=== PATIENT | female | born 1990 | race Hispanic/Latino ===

== ENCOUNTER 2018-03-25 09:33 | Inpatient (IN) | payer MEDICAID, OTHER ==
[2018-03-25 11:07] VITALS: BMI 35.3
[2018-03-25] MEDS ORDERED: Promethazine HCl 25 MG/ML VIAL IM PRN ×4 (11:23→17:08)
[2018-03-25] MEDS ORDERED: Ondansetron PF 4 MG/2 ML Vial IVP PRN ×3 (11:23→15:33)
[2018-03-25] MEDS ORDERED: CEFAZOLIN 2 GM/50 ML BAG IVPB SCH (11:30)
[2018-03-25] MEDS ORDERED: Bicitra 30 ML UDCUP PO SCH (11:30)
[2018-03-25] MEDS ORDERED: Fentanyl 100 MCG/2 ML VIAL ONE (11:32)
[2018-03-25] MEDS ORDERED: Oxytocin 10 UNITS/ML VIAL ONE ×3 (11:32→12:45)
[2018-03-25] MEDS ORDERED: Morphine PF 1 MG/ML SYR ONE (11:32)
[2018-03-25] MEDS ORDERED: Famotidine/PF 20 mg/2ml Vial ONE (11:33)
[2018-03-25] MEDS ORDERED: Lidocaine 2% 10 ML INJ ONE (11:48)
[2018-03-25] MEDS ORDERED: Bupivacaine 0.75% W/DEXTROSE 8.25% 2 ML AMP ONE (11:48)
[2018-03-25 11:57] LABS: Hemoglobin 12.3 g/dL (12.0-16.0); Mean Corpuscular HGB CONC 31.9 g/dL (32.0-36.0); Mean Corpuscular Hemoglobin 28.7 pg (27.0-31.0); Mean Corpuscular Volume 89.8 fL (78.0-98.0); Platelet Count 132 thou/uL (130-400); RBC Distribution Width 13.7 % (11.5-14.5); Red Blood Cell (RBC) Count 4.28 mill/uL (4.20-5.40); White Blood Cell (WBC) Count 9.4 thou/uL (4.8-10.8)
[2018-03-25 12:34] LABS: Syphilis Antibody Nonreactive (Nonreactive); Syphilis Antibody Index 0.03 S/CO (<1.00 Non-Reactive)
[2018-03-25 12:35] LABS: HBSAg Index 0.22 S/CO (0-0.99); Hep B Surf Ag Non-Reactive S/CO (NonReactive)
[2018-03-25] MEDS ORDERED: HYDROmorphone 2 MG/ML VIAL SLOW IVP PRN (12:43)
[2018-03-25] MEDS ORDERED: Eucerin (Mineral Oil/Petrolatum,White) 30 gm Jar TOP PRN (12:43)
[2018-03-25] MEDS ORDERED: Naloxone HCl 0.4 mg/ml Vial IV PRN (12:43)
[2018-03-25] MEDS ORDERED: L&D-Morphine 4 MG/ML VIAL SLOW IVP PRN (12:43)
[2018-03-25] MEDS ORDERED: Naloxone HCl 0.4 mg/ml Vial IVP PRN ×3 (12:43→17:08)
[2018-03-25] MEDS ORDERED: Meperidine HCl/PF 25 MG/ML VIAL SLOW IVP PRN (12:43)
[2018-03-25] MEDS ORDERED: Ketorolac Tromethamine 30 MG/ML VIAL IVP PRN ×2 (12:43→21:00)
[2018-03-25] MEDS ORDERED: Ondansetron HCl/PF 4 MG/2 ML Vial IVP PRN (12:43)
[2018-03-25] MEDS ORDERED: Promethazine HCl 25 MG SUPP PR PRN (12:43)
[2018-03-25] MEDS ORDERED: diphenhydrAMINE 50 MG/ML VIAL IVP PRN (12:43)
[2018-03-25] MEDS ORDERED: Communication Order-Pharmacy FS SCH (12:45)
[2018-03-25] MEDS ORDERED: Ketorolac Tromethamine 30 MG/ML VIAL IVP SCH (12:45)
--- NOTE | 2018-03-25 14:59 | PDOC.LDHP ---
Labor and Delivery H&P Chief complaint: scheduled section Current gestational age (weeks): 39 Due date: 03/30/18 Grav: 2 Para: 1 Current complications: none Abnormal US findings: No Current medications: pre-drea vitamins Previous surgical history: low tranverse CS Allergies/Adverse Reactions: Allergies Allergy/AdvReac Type Severity Reaction Status Date / Time No Known Allergies Allergy Verified 03/25/18 10:51 - Physical Exam Vital signs reviewed and normal: yes General: NAD, resting Heart: RRR Lungs: nonlabored breathing Abdomen: NTTP Extremeties: no edema FHT: category 1 - Assessment L&D Assessment: scheduled repeat section - Plan Plan: to OR for section
[2018-03-25] MEDS ORDERED: Lanolin Ointment 7 GM TUBE TOP PRN (15:33)
[2018-03-25] MEDS ORDERED: Adacel (T-DAP) 0.5 ML VIAL IM ONE (15:33)
[2018-03-25] MEDS ORDERED: Bisacodyl 10 MG SUPP PR PRN (15:33)
[2018-03-25] MEDS ORDERED: Zolpidem Tartrate 5 MG TAB PO PRN (15:33)
[2018-03-25] MEDS ORDERED: Measles/Mumps/Rubella 10 MCG/0.5 ML VIAL SC ONE (15:33)
[2018-03-25] MEDS ORDERED: diphenhydrAMINE 25 MG CAP PO PRN (15:33)
[2018-03-25] MEDS ORDERED: Varicella virus, LIVE 0.5 ML VIAL SC ONE (15:33)
[2018-03-25] MEDS ORDERED: NS / Oxytocin 40 units/1000ml 1,000 ML ONE (15:58)
[2018-03-25] MEDS ORDERED: NS / Oxytocin 40 units/1000ml 0 ML ONE (15:58)
[2018-03-25] MEDS ORDERED: Lactated Ringer's 2,000 ML IV SCH (16:00)
[2018-03-25] MEDS: NS / Oxytocin 40 units/1000ml 1,000 ML IV SCH ×2 (16:00→16:15)
[2018-03-25] MEDS ORDERED: PHENYLEPHRINE-NS 100 MCG/ML 10 ML SYRINGE ONE (17:51)
[2018-03-25] MEDS ORDERED: Ketorolac Tromethamine 30 MG/ML VIAL ONE (17:51)
[2018-03-25] MEDS ORDERED: Metoclopramide HCl 10 MG/2 ML VIAL ONE (17:51)
[2018-03-25] MEDS ORDERED: ePHEDrine/0.9% NaCl/PF SYRINGE 50 mg/10 ml ONE (17:51)
[2018-03-25] MEDS ORDERED: Dexamethasone 20 MG/5 ML VIAL ONE (17:51)
[2018-03-25] MEDS ORDERED: Ondansetron PF 4 MG/2 ML Vial ONE (17:51)
[2018-03-25] MEDS ORDERED: Acetaminophen 1,000 MG in Premix Bag 1 BAG IVPB PRN (19:00)
[2018-03-25] MEDS: Ketorolac Tromethamine 30 MG/ML VIAL IVP PRN (19:29)
[2018-03-26] MEDS: Ibuprofen 800 MG TAB PO SCH ×5 (00:34→20:45)
[2018-03-26] MEDS: Docusate Calcium (SURFAK) 240 MG CAP PO SCH ×3 (00:34→20:45)
[2018-03-26] MEDS: Ketorolac Tromethamine 30 MG/ML VIAL IVP PRN (01:33)
[2018-03-26 05:43] LABS: Hemoglobin 10.2 g/dL (12.0-16.0); Mean Corpuscular HGB CONC 31.3 g/dL (32.0-36.0); Mean Corpuscular Hemoglobin 28.5 pg (27.0-31.0); Mean Corpuscular Volume 90.8 fL (78.0-98.0); Mean Platelet Volume 9.4 fL (7.4-10.4); Platelet Count 122 thou/uL (130-400); RBC Distribution Width 13.8 % (11.5-14.5); Red Blood Cell (RBC) Count 3.58 mill/uL (4.20-5.40); White Blood Cell (WBC) Count 14.9 thou/uL (4.8-10.8)
[2018-03-26] MEDS: HYDROcodone/Acetaminophen 5/325 mg Tablet PO PRN ×4 (07:52→20:48)
[2018-03-26] MEDS: Simethicone Chewable 80 MG TAB PO PRN ×2 (07:52→17:15)
--- NOTE | 2018-03-26 13:55 | OP ---
DATE OF PROCEDURE: 03/25/2018 PREOPERATIVE DIAGNOSES: Intrauterine at 39 weeks and 2 days with a previous secti on and declined trial of labor after section. POSTOPERATIVE DIAGNOSES: Intrauterine at 39 weeks and 2 days with a previous sect ion and declined trial of labor after section. PROCEDURE: Repeat low-transverse section. FINDINGS: Viable female weighing 4050 grams or 8 pounds 15 ounces, Apgars 8 and 9. QUANTITATIVE BLOOD LOSS: 655 mL. COMPLICATIONS: None. SURGEON: Dr. Sky Cruz. ANESTHESIA: Dr. King. DETAILS OF THE PROCEDURE: The patient was consented and taken back to the operating room where spina l anesthesia was found to be adequate. She was then prepped and draped in the normal sterile fashion . A time out was performed by the entire operative team. The incision was then marked with a markin g pen tested using sharp pickups. An incision was then made with a scalpel. The incision was christy d through the adipose tissue down to the underlying rectus fascia using both sharp dissection as well as cautery. Once the fascia was identified, it was incised in the midline and then the fascial inci raven was carried through in both lateral directions using sharp as well as cautery dissection techn[employer]iPay ues. Next, the superior aspect of the rectus fascia was grasped with 2 Caroline clamps which was tente d up and the rectus muscles were dissected off using blunt dissection as well as cautery dissection. Similarly, the inferior aspect of the fascial incision was grasped with 2 Caroline clamps, tented up a nd the rectus muscles were dissected off bluntly as well as sharply. Next, the rectus muscles were s eparated in the midline and the peritoneum identified. The peritoneum was then carefully grasped wit h two hemostats and entered sharply. The peritoneal incision was extended superiorly and inferiorly and bladder blade was placed in the lower abdomen. At this point, the uterus was identified and the bladder flap was then developed using pickups with teeth as well as Metzenbaum scissors in both later al directions. The bladder flap was then dissected downwards using the tire recapping machine operator's finger as well as Metzenbaum scissors. The bladder blade was replaced. The lower uterine segment was then identified and entered sharply using a clean scalpel. The uterine incision was then dissected downwards until t hin layer of muscle remained and this was entered bluntly using a hemostat to avoid any injury to the baby. The uterine incision was then stretched using two fingers in both lateral directions. An amniotomy was performed artificially using a hemostat and the baby was delivered using fundal pres sure in a gentle fashion. Once out, the baby's mouth and nose were bulb suctioned, cord clamped and cut, and the baby was handed to waiting attendants. Next, the uterus was exteriorized, cleared of al l clots and debris and the uterine incision was repaired with #1 Monocryl in a running locking fashio n. A second suture of the same type was used to obtain complete hemostasis at the uterine incision. The bladder flap was reapproximated using 3-0 Monocryl. Next, patient's left and right adnexa were inspected and appeared to be within normal limits. The posterior cul-de-sac was blotted dry and hemo stasis assured. One more look at the uterine incision demonstrated hemostasis. Next, the uterus was replaced back within the abdomen. The peritoneum was reapproximated using 2-0 Monocryl without diff iculty. The rectus muscles were then allowed to come back together and 0 chromic was used to aid in reapproximation of the muscle as necessary. The rectus fascia was then reapproximated in a running f ashion using 0 Vicryl suture. The adipose tissue was then examined and appeared to be well approxima dorys without any obvious separations. Finally, the skin was reapproximated with 3-0 Monocryl on a Mark th needle without difficulty and Dermabond adhesive was applied to the skin. Once the glue was dry, the drapes were removed and the patient was transferred to an ambulatory bed where she was taken to [facility] awake and in stable condition. Sponge, lap, and needle counts were correct x3.
[2018-03-27] MEDS: Ibuprofen 800 MG TAB PO SCH ×2 (05:58→14:44)
[2018-03-27] MEDS: HYDROcodone/Acetaminophen 5/325 mg Tablet PO PRN ×3 (08:52→18:08)
[2018-03-27] MEDS: Docusate Calcium (SURFAK) 240 MG CAP PO SCH (08:52)
[2018-03-27 12:09] VITALS: BP 118/63; TEMP 97.5
== END 2018-03-27 19:45 | disposition home or self-care (01) | DRG 788 ==
LOC: L&D 09:33 → 3SW 16:20
PROVIDERS: ADMIT Obstetrics & Gynecology; ATTEND Obstetrics & Gynecology
PROC: 10D00Z1 Extraction of Products of Conception, Low, Open Approach (ICD-10-PCS; principal; 2018-03-25)
PROC: 3E02340 Introduction of Influenza Vaccine into Muscle, Percutaneous Approach (ICD-10-PCS; 2018-03-25)
DX: O34.211 Maternal care for low transverse scar from previous cesarean delivery (principal); Z3A.39 39 weeks gestation of pregnancy; Z37.0 Single live birth; Z23 Encounter for immunization
CPT/HCPCS: 36415; 51702; 85027; 86780; 86850; 86900; 86901; 87340; 90471; 90686; 90715; G0008; J0131; J1100; J1885; J2274; J2405; J2590; J2765; J3010; J3490; S0028